=== PATIENT | female | born 1945 | race Caucasian/White ===

== ENCOUNTER 2020-12-19 22:26 | Inpatient (IN) | payer OTHER, SELFPAY ==
--- NOTE | ~2020-12-19 | XR_ITS ---
EXAMINATION: XR CHEST CLINICAL INFORMATION: Chest pain COMPARISON: None TECHNIQUE: 2 views of the chest were obtained. FINDINGS: The cardiac shadow is at the upper limits of normal for size. The cardiomediastinal silhouette is otherwise normal in contour. There is mild prominence of the grecia and pulmonary vascular congestion. There is increased interstitial prominence throughout and mild peribronchial cuffing suggestive of interstitial edema. No focal consolidative airspace opacities are identified. There is no pleural effusion or pneumothorax. There are degenerative changes of the chest wall. XR/XR chest 2V IMPRESSION: Increased interstitial opacities throughout and pulmonary vascular congestion suggestive of interstitial edema.
--- NOTE | ~2020-12-19 | CT_ITS ---
EXAMINATION: CT HEAD WITHOUT CONTRAST CLINICAL INFORMATION: severe SANDY COMPARISON: None TECHNIQUE: Contiguous axial imaging was performed from the skull base to vertex without intravenous administration of contrast. This CT examination was performed using dose optimization techniques as appropriate, variously including the following: *Automated exposure control *Adjustment of mA and/or kV according to patient size (this includes techniques or standardized protocols for targeted exams where dose is matched to indication/reason for exam; i.e. extremities or head) *Use of iterative reconstruction technique DLP: 576 mGy-cm FINDINGS: There is no evidence of acute intracranial hemorrhage or territorial infarction. No abnormal mass effect or midline shift is seen. Lowery to white matter differentiation is well preserved. No extra-axial fluid collections are identified. Mild enlargement of the ventricles, sulci, and extra-axial CSF spaces is in keeping with age-appropriate parenchymal volume loss. Multiple areas of hypoattenuation in the subcortical and periventricular white matter are most consistent with chronic microangiopathic changes. Focal region of hypoattenuation in the right internal capsule at the genu may correspond to a perivascular space. Chronic lacunar infarct is possible. Chronic lacunar infarcts are present in the left thalamus and left caudate. Probable small lacunar infarct in the left cerebral hemisphere superiorly. Calcific atherosclerosis is present within the cavernous and supraclinoid segments of the internal carotid arteries. Globes are aphakic. The osseous structures and soft tissues are otherwise normal. The mastoid air cells and visualized portions of the paranasal sinuses are well aerated. CT/CT head/brain wo con IMPRESSION: No acute intracranial pathology.. 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
[2020-12-19 22:42] VITALS: BP 189/102; BP 234/87; PULSE 83; PULSE 84; RESP 20; TEMP 36.6; O2SAT 96; O2SAT 97; BMI 25.4
--- NOTE | 2020-12-19 22:50 | PC.NURSE ---
PT TO ED VIA AMBULANCE WITH MID STERNAL CP, RATING PAIN 10/10. PT VOMITING AFTER CP STARTED AND PAIN RESOLVED UNTIL ARRIVAL TO ED. EKG OBTAINED TO MD. PT ON MONITOR WITH HR 85 AND MD AT BEDSIDE FOR EVAL.
[2020-12-19 23:05] VITALS: BP 218/84; PULSE 80
[2020-12-19] MEDS: Labetalol HCL 100 MG/20 ML VIAL 10 MG IVPUSH (23:05)
--- NOTE | 2020-12-19 23:06 | PC.NURSE ---
PT MEDICATED FOR HIGH BP.
--- NOTE | 2020-12-19 23:10 | ECG_ITS ---
Test Reason : CHEST TIGHTNESS Blood Pressure : / mmHG Vent. Rate : 086 BPM Atrial Rate : 086 BPM P-R Int : 148 ms QRS Dur : 136 ms QT Int : 444 ms P-R-T Axes : 045 -70 102 degrees QTc Int : 531 ms Normal sinus rhythm Right bundle branch block Left anterior fascicular block Bifascicular block ST elevation in Septal leads Abnormal ECG No previous ECGs available Referred By: Veronica Whyte Electronically Signed By:JAIRO ALVARADO MD
--- NOTE | 2020-12-19 23:14 | PC.NURSE ---
LABS DRAWN TO LAB. PT AWAITING FOR CT.
[2020-12-19 23:18] LABS: MANUAL DIFF FLAG NO
[2020-12-19 23:19] LABS: Basophils Absolute Auto 0.1 X10*3/uL (0.0-0.2); Basophils Percent Auto 0.7 % (0-2); Eosinophils Absolute Auto 0.2 X10*3/uL (0.0-0.4); Eosinophils Percent Auto 1.7 % (0-4); Hematocrit 37.3 % (37-47); Hemoglobin 12.2 g/dl (12.0-16.0); Imm Gran Abs Auto 0.02 X10*3/uL (0.00-0.03); Imm Gran Pct Auto 0.2 % (0.0-0.4); Lymphocytes Absolute Auto 2.1 X10*3/uL (1.2-4.9); Lymphocytes Percent Auto 23.9 % (20-40); Mean Corpuscular HGB Conc 32.7 g/dl (31.0-35.0); Mean Corpuscular Hemoglobin 28.5 pg (27.0-33.0); Mean Corpuscular Volume 87.1 fL (80-98); Mean Platelet Volume 10.5 fL (9.4-12.3); Monocytes Absolute Auto 0.5 X10*3/uL (0.1-1.2); Neutrophils Absolute Auto 5.9 X10*3/uL (2.0-8.3); Neutrophils Percent Auto 67.5 % (45-73); Platelet Count 221 X10*3/uL (160-400); Red Blood Count 4.28 X10*6/uL (4.20-5.50); Red Cell Distribution Width 13.9 % (11.0-16.0); White Blood Count 8.8 X10*3/uL (4.8-10.8)
--- NOTE | 2020-12-19 23:21 | PC.NURSE ---
PT TO CT.
[2020-12-19 23:53] VITALS: BP 183/66; PULSE 81; O2SAT 96
[2020-12-20] VITALS (13 sets, daily range): BP systolic 116–197; BP diastolic 41–74; PULSE 63–81; RESP 16–18; TEMP 35.7–35.9; O2SAT 96–98
[2020-12-20 00:01] LABS: Alanine Aminotransferase 9 U/L (0-31); Albumin Level 3.7 g/dL (3.5-5.0); Alkaline Phosphatase 94 U/L (39-117); Anion Gap 11 (12-20); Aspartate Amino Transferase 11 U/L (5-31); Bilirubin Direct 0.2 mg/dL (0.0-0.5); Bilirubin Total 0.8 mg/dL (0.0-1.0); Blood Urea Nitrogen 20 mg/dL (9-16); Calcium 8.9 mg/dL (8.4-10.2); Carbon Dioxide 25 mmol/L (22-29); Chloride 104 mmol/L (96-108); Creatinine Clr Calc Pharmacy 45.6; Estimated Glomerular Filt Rate 55; Glucose Random 370 mg/dL (60-115); Potassium 3.8 mmol/L (3.3-5.1); Sodium 136 mmol/L (135-145); Total Protein 6.8 g/dL (6.5-8.0)
[2020-12-20 00:02] LABS: B Type Natriuretic Peptide 140 pg/mL (<100); Troponin-I High Sensitivity 407.5 ng/L (<3.5-17.0)
--- NOTE | 2020-12-20 00:04 | ED_ITS ---
HPI - Chest Pain General Chief Complaint: Chest Pain Stated Complaint: CP RESOLVED,VOMTING Time Seen by Provider: 12/19/20 22:49 Source: patient and EMS Mode of arrival: EMS Limitations: no limitations History of Present Illness HPI narrative: Patient comes to emergency room complaining of severe headache, midsternal chest pain. Patient states that since earlier this afternoon, she noticed that she had headache and it was gradually getting worse. Patient had 1 episode of vomiting no to the headache. Patient states that she also had substernal chest tightness, no medication was given by EMS, by the time patient arrived to emergency room, patient states that the chest pain nearly resolved, however she has been experiencing intermittent chest tightness throughout the day. On arrival, it was noted that the patient's blood pressure is 230 systolic, patient states that she is visiting from [place], lives in [place], is here visiting a daughter. Patient forgot all her medications at home in [place], and has not had any insulin or blood pressure medications for 2-3 days. MD complaint: chest heaviness, chest discomfort and other (Headache, high blood pressure) Related Data Allergies Allergy/AdvReac Type Severity Reaction Status Date / Time Opioids - Morphine Analogues AdvReac Intermediate AMS Verified 12/19/20 22:58 Review of Systems Review of Systems: Constitutional : No Weight loss, No Fever, No Chills, No Night Sweats, No Fatigue, No Malaise ENT/Mouth : No Hearing loss, No Ear Pain, No Nasal Congestion, No Sinus Pain, No Hoarseness, No sore throat, No Rhinorrhea, No Swallowing Difficulty Eyes: No Eye Pain, No Swelling, No Redness, No Foreign Body, No Discharge, No Vision Changes Cardiovascular : Chest heaviness intermittent,, No SOB, No Dyspnea on Exertion, No Orthopnea, No Edema, No Palpitations Respiratory : No Cough, No Sputum, No Wheezing, No Smoke Exposure, No Dyspnea Gastrointestinal : No Nausea, No Vomiting, No Diarrhea, No Constipation, No abdominal Pain, No Hematochezia, No Melena Genitourinary : no irregular bleeding, No Dysuria, No Urinary Frequency, No Hematuria, No Urinary Incontinence, No Urgency, No Flank Pain, No Urinary Flow Changes, No Hesitancy Musculoskeletal : No joint pain, No Myalgias, No Joint Swelling Skin : No Skin Lesions, No rash Neuro : No Weakness, No Numbness, No Paresthesias, No Loss of Consciousness, No Dizziness, complaining of severe headache Psych : No Anxiety/Panic, No Depression, No SI/HI/AH/VH, No Social Issues, Heme/Lymph: No Bruising, No Bleeding,No Lymphadenopathy Endocrine : No Polyuria, No Polydipsia, No Temperature Intolerance PMF Past Medical History Medical History Asthma Diabetes mellitus type 1 Hypercholesteremia Hypertension Surgical History History of amputation Social History Social History Advance Directives: No Physical Exam Vital Signs: Vital Signs: Last Vital Signs Temp 98 F 12/19/20 22:42 Pulse 73 12/20/20 02:11 Resp 16 12/20/20 02:11 BP 160/65 H 12/20/20 02:11 Pulse Ox 96 12/20/20 02:11 Body Mass Index 25.4 Appearance: Alert. Oriented X3. Mild distress, complaining of severe headache Eyes: Pupils equal, round and reactive to light. ENT: Pharynx normal. Neck: Normal inspection. Neck supple. No lymph nodes noted. No crepitus CVS: Normal heart rate and rhythm. Pulses normal. Normal S1 and S2 Respiratory: No respiratory distress. Breath sounds normal. No Wheezing. No rales Abdomen: Soft and nontender. No rigidity. No distention. Skin: Skin warm and dry. Normal skin color. Extremities: No lower extremity edema. No Lacerations. No Rash Neuro: Oriented X 3. No motor deficit. No sensory deficit. Moving all extermities. No slurred speech. Course Course Course Narrative: After the 1st dose of IV labetalol, blood pressure decreased to 180s systolic, patient states that her headache nearly resolved, at this time she has no chest pain, no chest pressure. Patient overall feeling better. Patient's 1st troponin is 407, likely secondary to the hypertension/demand ischemia. The EKG showed ST segment depressions in the V4 V5 V6. We do not have any previous labs or EKGs, as this is the 1st time that the patient comes to this emergency room. I discussed the patient, labs and EKGs with Dr. Gibbons, patient is being admitted. However, troponin 2. Is pending. If the 2nd troponin is higher than the 1st 1, cardiology consult will be obtained. I spoke to Dr. Shin, who took sign-out. If needed, he will obtain the cardiology consult. MDM - Chest Pain Lab Data Result diagrams: 12/19/20 23:09 12/19/20 23:09 Labs: Lab Results 12/19/20 12/19/20 12/19/20 Range/Units 23:09 23:09 23:09 WBC 8.8 (4.8-10.8) X10*3/uL RBC 4.28 (4.20-5.50) X10*6/uL Hgb 12.2 (12.0-16.0) g/dl Hct 37.3 (37-47) % MCV 87.1 (80-98) fL MCH 28.5 (27.0-33.0) pg MCHC 32.7 (31.0-35.0) g/dl RDW 13.9 (11.0-16.0) % Plt Count 221 (160-400) X10*3/uL MPV 10.5 (9.4-12.3) fL Immature Gran % (Auto) 0.2 (0.0-0.4) % Neut % (Auto) 67.5 (45-73) % Lymph % (Auto) 23.9 (20-40) % [place] % (Auto) 6.0 (2-11) % Eos % (Auto) 1.7 (0-4) % Baso % (Auto) 0.7 (0-2) % Lymph # (Auto) 2.1 (1.2-4.9) X10*3/uL [place] # (Auto) 0.5 (0.1-1.2) X10*3/uL Eos # (Auto) 0.2 (0.0-0.4) X10*3/uL Baso # (Auto) 0.1 (0.0-0.2) X10*3/uL Abs Immat Gran (auto) 0.02 (0.00-0.03) X10*3/uL Absolute Neuts (auto) 5.9 (2.0-8.3) X10*3/uL Absolute Nucleated RBC 0.000 (0.0-0.012) X10*3/uL Nucleated RBC % (auto) 0.0 (0.0-0.2) /100WBC Sodium 136 (135-145) mmol/L Potassium 3.8 (3.3-5.1) mmol/L Chloride 104 (96-108) mmol/L Carbon Dioxide 25 (22-29) mmol/L Anion Gap 11 L (12-20) BUN 20 H (9-16) mg/dL Creatinine 0.98 (0.5-1.4) mg/dL Estim Creat Clear Calc 45.6 Estimated GFR 55 POC Glucose (60-115) mg/dL Random Glucose 370 H* (60-115) mg/dL Calcium 8.9 (8.4-10.2) mg/dL Total Bilirubin 0.8 (0.0-1.0) mg/dL Direct Bilirubin 0.2 (0.0-0.5) mg/dL AST 11 (5-31) U/L ALT 9 (0-31) U/L Alkaline Phosphatase 94 (39-117) U/L Troponin I High Sens 407.5 H (<3.5-17.0) ng/L B-Natriuretic Peptide 140 H (<100) pg/mL Total Protein 6.8 (6.5-8.0) g/dL Albumin 3.7 (3.5-5.0) g/dL COVID-19 ([facility]) (Negative) COVID-19 Clin Com 12/20/20 12/20/20 Range/Units 02:04 02:42 WBC (4.8-10.8) X10*3/uL RBC (4.20-5.50) X10*6/uL Hgb (12.0-16.0) g/dl Hct (37-47) % MCV (80-98) fL MCH (27.0-33.0) pg MCHC (31.0-35.0) g/dl RDW (11.0-16.0) % Plt Count (160-400) X10*3/uL MPV (9.4-12.3) fL Immature Gran % (Auto) (0.0-0.4) % Neut % (Auto) (45-73) % Lymph % (Auto) (20-40) % [place] % (Auto) (2-11) % Eos % (Auto) (0-4) % Baso % (Auto) (0-2) % Lymph # (Auto) (1.2-4.9) X10*3/uL [place] # (Auto) (0.1-1.2) X10*3/uL Eos # (Auto) (0.0-0.4) X10*3/uL Baso # (Auto) (0.0-0.2) X10*3/uL Abs Immat Gran (auto) (0.00-0.03) X10*3/uL Absolute Neuts (auto) (2.0-8.3) X10*3/uL Absolute Nucleated RBC (0.0-0.012) X10*3/uL Nucleated RBC % (auto) (0.0-0.2) /100WBC Sodium (135-145) mmol/L Potassium (3.3-5.1) mmol/L Chloride (96-108) mmol/L Carbon Dioxide (22-29) mmol/L Anion Gap (12-20) BUN (9-16) mg/dL Creatinine (0.5-1.4) mg/dL Estim Creat Clear Calc Estimated GFR POC Glucose 296 H (60-115) mg/dL Random Glucose (60-115) mg/dL Calcium (8.4-10.2) mg/dL Total Bilirubin (0.0-1.0) mg/dL Direct Bilirubin (0.0-0.5) mg/dL AST (5-31) U/L ALT (0-31) U/L Alkaline Phosphatase (39-117) U/L Troponin I High Sens (<3.5-17.0) ng/L B-Natriuretic Peptide (<100) pg/mL Total Protein (6.5-8.0) g/dL Albumin (3.5-5.0) g/dL COVID-19 ([facility]) Negative (Negative) COVID-19 Clin Com See Note ECG Data ECG #1: Attestation: I personally reviewed and interpreted this ECG as follows: (Sinus rhythm, heart rate 86, right bundle-branch block, T-wave inversions in V1 V2 V3, ST segment depressions in V4 through V6) ECG #2: Attestation: I personally reviewed and interpreted this ECG as follows: (Heart rate 83, normal sinus rhythm, QTC 514, no longer having ST segment depressions in V4 through V6, no T-wave inversions in V2) ECG #3: Attestation: I personally reviewed and interpreted this ECG as follows: (Heart rate 76, sinus rhythm, QTC 546, no EKG changes from EKG #2) Critical Care Time Critical Care Time Total Critical Care Time: 90 Discharge Plan Discharge Clinical Impression: Hypertensive emergency without congestive heart failure, Chest pressure, Hyperglycemia Headache Qualifiers: Headache type: unspecified Headache chronicity pattern: acute headache Intractability: not intractable Qualified Code(s): R51.9 - Headache, unspecified Patient Disposition: Admitted As Inpatient
[2020-12-20] MEDS: Labetalol HCL 100 MG/20 ML VIAL IVPUSH (00:08)
--- NOTE | 2020-12-20 00:08 | PC.NURSE ---
PT MEDICATED PER EMAR FOR HIGH B/P.
[2020-12-20] MEDS: Acetaminophen 325 MG TABLET 650 MG PO (00:09)
--- NOTE | 2020-12-20 00:57 | ECG_ITS ---
Test Reason : REPEAT Blood Pressure : / mmHG Vent. Rate : 076 BPM Atrial Rate : 076 BPM P-R Int : 150 ms QRS Dur : 126 ms QT Int : 486 ms P-R-T Axes : 048 -59 085 degrees QTc Int : 546 ms Normal sinus rhythm Left axis deviation Left ventricular hypertrophy with QRS widening and repolarization abnormality Cannot rule out Anteroseptal infarct , age undetermined Abnormal ECG When compared with ECG of 19-DEC-2020 22:46, (RBBB and left anterior fascicular block) is no longer Present Minimal criteria for Anteroseptal infarct are now Present Referred By: Veronica Whyte Electronically Signed By:JAIRO ALVARADO MD
--- NOTE | 2020-12-20 01:30 | PC.NURSE ---
REPEAT EKG OBTAINED TO . REPEAT TROP AT 0200. PT RESTING, WAKES TO VERBAL STIMULI, RESP EASY, N/L. SKIN W/D. PT REMAINS ON MONITOR WITH HR 79. B/P 197\74. AWAITING FOR REPEAT TROP.
[2020-12-20] MEDS: Labetalol HCL 100 MG/20 ML VIAL 10 MG IVPUSH (01:33)
[2020-12-20] MEDS: Insulin Regular, Human 100 UNIT/ML 3 ML VIAL 10 UNIT IVPUSH (01:38)
--- NOTE | 2020-12-20 01:58 | PC.NURSE ---
3RD EKG OBTAINED TO MD. PT RESTING IN STRETCHER AND DENIES ANY COMPLAINTS/PAIN AT THIS TIME. WILL CONTINUE TO MONITOR PT. TROPONIN DRAWN AT THIS TIME TO LAB.
[2020-12-20 02:29] LABS: COVID-19 Test Negative (Negative); IDNOW Serial# 9DD0AD1C
--- NOTE | 2020-12-20 02:43 | PC.NURSE ---
REPEAT BS 296 MD AWARE.
[2020-12-20 02:46] LABS: Glucose, Whole Blood 296 mg/dL (60-115)
--- NOTE | 2020-12-20 02:51 | PC.NURSE ---
HOSPITALIST IN ROOM FOR EVAL.
[2020-12-20 03:02] LABS: Troponin-I High Sensitivity 481.6 ng/L (<3.5-17.0)
--- NOTE | 2020-12-20 03:26 | PM.IMHP ---
History of Present Illness Date of Service: 12/20/20 Chief Complaint: chest pain 74-year-old female with a past medical history of hypertension, hyperlipidemia, diabetes, CAD status post CABG presented to the hospital with a chief complaint of chest pain/headaches. Patient reports that she is visiting from [facility] and has been if her son's place for 2 days and has not taken her medications since. Today when she was watching TV she suddenly had chest pain located in the center of the chest tight in nature associated nausea and vomiting and dizziness; also had headache at the same time and denies any blurry visions or focal weakness. Denies any numbness tingling. Chest pain lasted for few minutes and subsequently continued to have the headache hence decided to come to the hospital for further evaluation. Denies fever chills cough. Denies any urinary symptoms. Review of all other systems is negative except mentioned above Patient reported the time of my entry her chest pain significantly improved and headache also significantly improved. A ER course: Per ER team patient CT head showed no acute findings. Patient was given labetalol x2; blood pressure improved from 230/87 on presentation to 160/65. Patient's blood pressure at the time of my interview was 145 over 65. ER team also mentioned that her troponin is 400 followed by 480. EKG showed ST depressions in V4 V5 V6 and lead V1 and T-wave inversions in V2 to V3. Of follow-up EKGs have similar findings. Once the blood pressure improved her EKG changes slightly improved. [facility] Medical History Asthma Diabetes mellitus type 1 Hypercholesteremia Hypertension Surgical History History of amputation Social History Household Members: Children Housing: House Smoking Status: Never smoker service: No Current occupational status: unemployed Meds Allergies Allergy/AdvReac Type Severity Reaction Status Date / Time Opioids - Morphine Analogues AdvReac Intermediate AMS Verified 12/19/20 22:58 Active Medications: Current Medications Generic Name Dose Route Start Last Admin Trade Name Freq PRN Reason Stop Dose Admin Acetaminophen 650 mg 12/20/20 03:18 Acetaminophen 325 Mg Tablet PO Q6H PRN Pain, Mild (Pain Scale 1-3) Aspirin 81 mg 12/20/20 03:25 Aspirin 81 Mg Tab.Chew PO DAILY [facility] Enoxaparin Sodium 65 mg 12/20/20 03:30 Enoxaparin Sodium 120 Mg/0.8 Ml Syringe 1 mg/kg (65 mg) SUBCUT Q12H [facility] Insulin Glargine 10 unit 12/20/20 21:00 Insulin Glargine,Hum.Rec.Anlog 100 Unit/Ml 10 Ml Vial SUBCUT BEDTIME [facility] Insulin Human Lispro 0 unit 12/20/20 07:30 Insulin Lispro 100 Unit/Ml 3 Ml Vial SUBCUT QIDACHS [facility] Protocol Nitroglycerin 0.4 mg 12/20/20 03:18 Nitroglycerin 0.4 Mg Tab.Subl SUBLINGUAL Q5M PRN Chest Pain Pharmacy Consult 1 each 12/20/20 01:45 Consult Rx Perform Med Rec MISCELLANE ONCE PRN Consult order Sodium Chloride 3 ml 12/20/20 08:00 0.9 % Sodium Chloride Flush 3 Ml Syringe IVFLUSH QSHIFT [facility] Home Medications Medication Instructions Recorded Confirmed Last Taken Type clopidogrel 75 mg PO DAILY 12/20/20 12/20/20 Unknown History ferrous sulfate 325 mg PO DAILY 12/20/20 12/20/20 Unknown History glipizide 10 mg PO DAILY 12/20/20 12/20/20 Unknown History hydrochlorothiazide 12.5 mg PO DAILY 12/20/20 12/20/20 Unknown History metoprolol succinate 200 mg PO DAILY 12/20/20 12/20/20 Unknown History sitagliptin [Januvia] 100 mg PO DAILY 12/20/20 12/20/20 Unknown History Physical Exam Vital Signs and Narrative: Vital Signs: Last Vital Signs Temp 98 F 12/19/20 22:42 Pulse 73 12/20/20 02:11 Resp 16 12/20/20 02:11 BP 160/65 H 12/20/20 02:11 Pulse Ox 96 12/20/20 02:11 Body Mass Index 25.4 Gen: Appears be in no acute distress HEENT: NCAT, Moist mucosa. Pulmonary: Vesicular breath sounds, fair air entry CVS: Normal S1-S2 Abdomen: BS+, Soft, Nontender Extremities: Warm well perfused Neuro: Alert and awake. Grossly nonfocal Results Labs CBC and Chem 7: 12/20/20 06:52 12/20/20 06:52 Labs: Laboratory Results - last 24 hr 12/19/20 12/19/20 12/19/20 23:09 23:09 23:09 MCV 87.1 MCH 28.5 MCHC 32.7 RDW 13.9 Plt Count 221 MPV 10.5 Immature Gran % (Auto) 0.2 Neut % (Auto) 67.5 Lymph % (Auto) 23.9 [place] % (Auto) 6.0 Eos % (Auto) 1.7 Baso % (Auto) 0.7 Lymph # (Auto) 2.1 [place] # (Auto) 0.5 Eos # (Auto) 0.2 Baso # (Auto) 0.1 Abs Immat Gran (auto) 0.02 Absolute Neuts (auto) 5.9 Absolute Nucleated RBC 0.000 Nucleated RBC % (auto) 0.0 Anion Gap 11 L Estim Creat Clear Calc 45.6 Estimated GFR 55 POC Glucose Random Glucose 370 H* Calcium 8.9 Total Bilirubin 0.8 Direct Bilirubin 0.2 AST 11 ALT 9 Alkaline Phosphatase 94 Troponin I High Sens 407.5 H B-Natriuretic Peptide 140 H Total Protein 6.8 Albumin 3.7 COVID-19 ([facility]) COVID-[employer] 12/20/20 12/20/20 12/20/20 02:04 02:04 02:42 MCV MCH MCHC RDW Plt Count MPV Immature Gran % (Auto) Neut % (Auto) Lymph % (Auto) [place] % (Auto) Eos % (Auto) Baso % (Auto) Lymph # (Auto) [place] # (Auto) Eos # (Auto) Baso # (Auto) Abs Immat Gran (auto) Absolute Neuts (auto) Absolute Nucleated RBC Nucleated RBC % (auto) Anion Gap Estim Creat Clear Calc Estimated GFR POC Glucose 296 H Random Glucose Calcium Total Bilirubin Direct Bilirubin AST ALT Alkaline Phosphatase Troponin I High Sens 481.6 H B-Natriuretic Peptide Total Protein Albumin COVID-19 ([facility]) Negative COVID-19 Clin Com See Note Imaging Radiologist's Impressions: Impressions Head CT 12/19/20 22:59 IMPRESSION: No acute intracranial pathology.. 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 Assessment and Plan (1) Chest pressure: Status: Resolved 74-year-old female with a past medical history of hypertension, hyperlipidemia, diabetes, CAD status post CABG presented to the hospital with a chief complaint of chest pain/headaches. Noted to be in hypertensive emergency, which improved with labetalol. Admitted for further management. Hypertensive emergency: Patient's blood pressure on presentation was 230/87. CT head showed no acute findings. Exam was nonfocal. Patient was given labetalol in the ER with improvement in blood pressure at the time of my interview to 145/65. Will start the patient on metoprolol from tomorrow. Monitor vitals. NSTEMI: Patient noted to have subtle ST changes in the lateral leads on the EKG. Troponin elevated to 400 is followed by 480. Spoke to Dr. carrion; recommended to anticoagulated the patient. Will start the patient on Lovenox. Started aspirin. Will also give Lipitor. Patient on beta-ashley as mentioned. Telemetry Cycle cardiac enzymes Echocardiogram shows Diabetes: Insulin sliding scale. Will also start the patient on Lantus. Patient does not recall her home medications, will defer to the a.m. team to touch base with the patient's primary care physician in ER for medication confirmation. Code status: Full code
[2020-12-20] MEDS: Aspirin 81 MG TAB.CHEW PO ×2 (03:54→07:51)
[2020-12-20] MEDS: Enoxaparin Sodium 120 MG/0.8 ML SYRINGE 65 MG SUBCUT (04:06)
--- NOTE | 2020-12-20 05:47 | PC.NURSE ---
REPORT GIVEN TO RN. PT AWAITING TO GO TO FLOOR.
[2020-12-20 07:10] LABS: Glucose, Whole Blood 280 mg/dL (60-115)
[2020-12-20 07:18] LABS: MANUAL DIFF FLAG NO
[2020-12-20 07:20] LABS: Basophils Absolute Auto 0.1 X10*3/uL (0.0-0.2); Basophils Percent Auto 0.7 % (0-2); Eosinophils Absolute Auto 0.2 X10*3/uL (0.0-0.4); Eosinophils Percent Auto 1.7 % (0-4); Hemoglobin 11.2 g/dl (12.0-16.0); Imm Gran Abs Auto 0.04 X10*3/uL (0.00-0.03); Imm Gran Pct Auto 0.4 % (0.0-0.4); Lymphocytes Absolute Auto 2.9 X10*3/uL (1.2-4.9); Lymphocytes Percent Auto 30.7 % (20-40); Mean Corpuscular Volume 87.5 fL (80-98); Mean Platelet Volume 10.8 fL (9.4-12.3); Monocytes Absolute Auto 0.6 X10*3/uL (0.1-1.2); Monocytes Percent Auto 5.8 % (2-11); Neutrophils Absolute Auto 5.8 X10*3/uL (2.0-8.3); Neutrophils Percent Auto 60.7 % (45-73); Platelet Count 215 X10*3/uL (160-400); Red Cell Distribution Width 14.1 % (11.0-16.0); White Blood Count 9.5 X10*3/uL (4.8-10.8)
[2020-12-20 07:22] LABS: Hematocrit 34.6 % (37-47); Hemoglobin 11.3 g/dl (12.0-16.0); Mean Corpuscular HGB Conc 32.7 g/dl (31.0-35.0); Mean Corpuscular Hemoglobin 28.3 pg (27.0-33.0); Mean Corpuscular Volume 86.7 fL (80-98); Mean Platelet Volume 11.2 fL (9.4-12.3); Platelet Count 218 X10*3/uL (160-400); Red Blood Count 3.99 X10*6/uL (4.20-5.50); Red Cell Distribution Width 13.9 % (11.0-16.0); White Blood Count 9.5 X10*3/uL (4.8-10.8)
[2020-12-20 07:38] LABS: INTERNATIONAL NORM RATIO 1.1 (0.9-1.1); Prothrombin Time 13.1 SEC (10.8-13.0)
[2020-12-20 07:41] LABS: Partial Thromboplastin Time 45.5 SEC (24.1-38.0)
[2020-12-20] MEDS: Insulin Lispro 100 UNIT/ML 3 ML VIAL SUBCUT (07:50)
[2020-12-20] MEDS: Metoprolol Tartrate 25 MG TABLET PO (07:51)
[2020-12-20 07:56] LABS: Anion Gap 12 (12-20); Blood Urea Nitrogen 22 mg/dL (9-16); Calcium 8.7 mg/dL (8.4-10.2); Carbon Dioxide 23 mmol/L (22-29); Chloride 107 mmol/L (96-108); Creatinine Clr Calc Pharmacy 46.6; Estimated Glomerular Filt Rate 57; Glucose Random 316 mg/dL (60-115); Potassium 3.7 mmol/L (3.3-5.1); Sodium 138 mmol/L (135-145)
--- NOTE | 2020-12-20 08:30 | CA_ITS ---
Transthoracic Echocardiogram Patient (Last, First, Middle): Payton Souza, Gender: Female Date of : 1945 Age: 74 Procedure Date: 12/20/2020 Procedure Type: Transthoracic Echocardiogram Location: S3E Height: 160.02 cm Weight: 64.86 kg BSA: 1.68 m2 Heart Rate: bpm BP: 147 / 48 mmHg Director Data Management: DAREN Cobb MD: Abiel Gibbons MD Spray Gunner: Sujit Carrion MD Symptoms: chest pain Study Quality: Good ECG Rhythm: Sinus Conclusions: - 1. Czoo-hw-fomzhnpf LV systolic dysfunction with grade 1 diastolic dysfunction with wall motion abnormality suggestive underlying coronary artery disease 2. Cardiac valvular Doppler within normal limits 3. Normal RV systolic pressure 4. No pericardial effusion Findings Left Ventricle Normal left ventricular cavity size. There is normal left ventricular wall thickness. The left ventricular systolic function is mild to moderately decreased. The visually estimated ejection fraction is between 40-45%. Spectral Doppler is indicative of an impaired relaxation filling pattern. E/E prime ratio is <8, consistent with normal filling pressures. Evidence suggests grade I (mild) diastolic dysfunction. Wall Motion Rest Echo Findings The basal inferior, basal anterior, and mid anteroseptal segments are hypokinetic. The inferoseptal wall is akinetic. All other scored wall segments showed normal motion. Right Ventricle Normal right ventricular cavity size and systolic function. Atria The left atrium is likely dilated. There is lipomatous hypertrophy of the interatrial septum. Interatrial shunt cannot be excluded. The right atrium is normal in size. Aortic Valve The aortic valve was not well visualized. There is no aortic valve stenosis. There is no aortic valve regurgitation. Mitral Valve Normal mitral valve structure and function. There is trace mitral valve regurgitation. There is no mitral valve stenosis. Pulmonic Valve The pulmonic valve was not well visualized. Tricuspid Valve Likely normal tricuspid valve structure and function. There is mild tricuspid valve regurgitation. The right ventricular systolic pressure is normal. The right ventricular systolic pressure is 27 mmHg. Normal right atrial pressure. There is no evidence of pulmonary hypertension. Great Vessels All visible segments of the aorta are normal in size. The pulmonary artery was not well visualized. Venous The inferior vena cava is normal in size and collapses greater than 50% with inspiration. Pericardium/Pleural There is no evidence of pericardial effusion. Prior Study Comparison No prior study available for comparison. Measurements 2D Linear Measurements IVSd: 1.15 0.6-0.9/0.6-1.0 cm LVIDd: 4.40 3.9-5.3/4.2-5.9 cm LVIDd Index: 2.62 2.4-3.2/2.2-3.1 cm/m2 LVIDs: 3.47 2.0-3.6 cm LVPWd: 1.11 0.7-1.1 cm Ao Root: 3.10 2.1-3.5 cm LA Diam: 3.70 2.7-3.8/3.0-4.0 cm LAIDs Index: 2.20 1.5-2.3 cm/m2 LV Mass: 218.63 67-162/88-224 g LV Mass Index: 130.14 43-95/49-115 g/m2 LVOT Diam: 2.00 3.0+(-)1.3 cm Mitral Valve MV Pk E: 0.62 MV PK A: 0.97 MV Decel Time: 208.00 E/A: 0.60 E'Lateral: 3.70 E'Medial: 4.46 E/E' Med: 13.90 E/E' Lat: 16.70 PHT: 61.00 MVA PHT: 3.61 Decel [place]: 2.98 Aortic Valve AoV Pk Leo: 1.40 AoV Mn Leo: 0.96 AoV VTI: 0.33 AoV Pk Grad: 8.00 Aov Mn Grad: 4.00 GUILLERMO Cont.VTI: 1.78 LVOT LVOT Pk Leo: 0.88 LVOT Mn Leo: 0.52 LVOT VTI: 0.19 LVOT Pk Grad: 3.00 LVOT Mn Grad: 1.00 LVOT Diam: 2.00 LVOT Area: 3.14 Diastolic Function MV Pk E: 0.62 MV Pk A: 0.97 E/A: 0.60 E'Medial: 4.46 E/E' Med: 13.90 E' Laterial: 3.70 E/E' Lat: 16.70 Tricuspid Valve TR Pk Leo: 2.47 TR Pk Grad: 24.00 RA Press: 3.00 RVSP: 27.00 Great Vessels Aorta Ao Root-2D: 3.10 2.0-3.7 cm Ao Asc: 3.20 2.1-3.4 cm Ao Arch: 2.70 Updated in Other Vendor System with Status of Final Sujit Carrion MD electronically signed on 12/20/2020 4:43:29 PM with status of Final
--- NOTE | 2020-12-20 09:34 | MHC.CM.PN ---
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 REIS IN [place], PT USED [facility] AND HAS NOT USED A LOCAL PHARMACY SINCE COMING TO [place]. DISCHARGE PLAN: RETURN TO SONS HOME, JAYSON LEA TO TRANSPORT [phone]
--- NOTE | 2020-12-20 09:35 | PM.DS ---
DS: Providers Provider Date of Service: 12/20/20 Date of admission: 12/20/20 03:18 Primary care physician: Unknown Physician Consults: 12/20/20 03:18 Consult to Cardiology Routine Consulting Provider: Sujit Carrion Reason for consultation: chest pain DS: Diagnosis Discharge Diagnosis (1) Acute coronary syndrome: Status: Acute (2) Hypertensive emergency without congestive heart failure: Status: Acute DS: Medications Discharge Medications Home Medications: Previous Rx's Medication Instructions Recorded acetaminophen 650 mg PO Q6H PRN #1 tab 12/20/20 aspirin 81 mg PO DAILY #1 tab 12/20/20 atorvastatin 40 mg PO BEDTIME #1 tab 12/20/20 enoxaparin 65 mg SUBCUT Q12H #1 ml 12/20/20 insulin glargine [Lantus U-100 10 unit SUBCUT BEDTIME #1 ml 12/20/20 Insulin] insulin lispro [Humalog U-100 See Protocol SUBCUT QIDACHS #1 ml 12/20/20 Insulin] metoprolol tartrate 25 mg PO BID #1 tab 12/20/20 nitroglycerin [Nitrostat] 0.4 mg SUBLINGUAL Q5M PRN #1 tab 12/20/20 sodium chloride 0.9 % (flush) [BD 3 ml IVFLUSH QSHIFT #1 ml 12/20/20 PosiFlush Normal Saline 0.9] DS: Summary Hospital Course Hospital Course: From this morning's history and physical by admitting hospitalist Abiel Gibbons MD: 74-year-old female with a past medical history of hypertension, hyperlipidemia, diabetes, CAD status post CABG presented to the hospital with a chief complaint of chest pain/headaches. Patient reports that she is visiting from [facility] and has been if her son's place for 2 days and has not taken her medications since. Today when she was watching TV she suddenly had chest pain located in the center of the chest tight in nature associated nausea and vomiting and dizziness; also had headache at the same time and denies any blurry visions or focal weakness. Denies any numbness tingling. Chest pain lasted for few minutes and subsequently continued to have the headache hence decided to come to the hospital for further evaluation. Denies fever chills cough. Denies any urinary symptoms. Review of all other systems is negative except mentioned above Patient reported the time of my entry her chest pain significantly improved and headache also significantly improved. ER course: Per ER team patient CT head showed no acute findings. Patient was given labetalol x2; blood pressure improved from 230/87 on presentation to 160/65. Patient's blood pressure at the time of my interview was 145 over 65. ER team also mentioned that her troponin is 400 followed by 480. EKG showed ST depressions in V4 V5 V6 and lead V1 and T-wave inversions in V2 to V3. Of follow-up EKGs have similar findings. Once the blood pressure improved her EKG changes slightly improved. The patient was admitted to telemetry. Chest pain resolved. EKGs were reviewed and actually showed septal ST elevations. Cardiology was consulted. Echocardiography demonstrated septal wall motion abnormalities. She was transferred to [facility] for cardiac catheterization. Time Spent with Patient Time attestation: Total time spent providing and/or coordinating discharge services: 35 Discharge coordination time: Greater than 30 minutes Physical Exam Vital Signs: Vital Signs: Last Vital Signs Temp 96.2 F L 12/20/20 08:00 Pulse 75 12/20/20 08:00 Resp 16 12/20/20 08:00 BP 156/60 H 12/20/20 08:00 Pulse Ox 98 12/20/20 08:00 Body Mass Index 25.4 Gen: in no acute distress, Green[place]ic-speaking HEENT: sclera anicteric, moist mucus membranes Neck: supple Lungs: clear to auscultation bilaterally Heart: regular rate and rhythm, no murmurs Abd: soft, non-tender, non-distended Ext: no edema, s/p right AKA Skin: warm/well-perfused Neuro: alert and oriented x3, no focal findings Psych: appropriate affect DS: Data Data Completed and Pending Labs on day of discharge: Laboratory Results - last 24 hr 12/19/20 12/19/20 12/19/20 23:09 23:09 23:09 WBC 8.8 RBC 4.28 Hgb 12.2 Hct 37.3 MCV 87.1 MCH 28.5 MCHC 32.7 RDW 13.9 Plt Count 221 MPV 10.5 Immature Gran % (Auto) 0.2 Neut % (Auto) 67.5 Lymph % (Auto) 23.9 [place] % (Auto) 6.0 Eos % (Auto) 1.7 Baso % (Auto) 0.7 Lymph # (Auto) 2.1 [place] # (Auto) 0.5 Eos # (Auto) 0.2 Baso # (Auto) 0.1 Abs Immat Gran (auto) 0.02 Absolute Neuts (auto) 5.9 Absolute Nucleated RBC 0.000 Nucleated RBC % (auto) 0.0 PT INR APTT Sodium 136 Potassium 3.8 Chloride 104 Carbon Dioxide 25 Anion Gap 11 L BUN 20 H Creatinine 0.98 Estim Creat Clear Calc 45.6 Estimated GFR 55 POC Glucose Random Glucose 370 H* Calcium 8.9 Total Bilirubin 0.8 Direct Bilirubin 0.2 AST 11 ALT 9 Alkaline Phosphatase 94 Troponin I High Sens 407.5 H B-Natriuretic Peptide 140 H Total Protein 6.8 Albumin 3.7 COVID-19 (RONALD) COVIDYinYangMap 12/20/20 12/20/20 12/20/20 02:04 02:04 02:42 WBC RBC Hgb Hct MCV MCH MCHC RDW Plt Count MPV Immature Gran % (Auto) Neut % (Auto) Lymph % (Auto) [place] % (Auto) Eos % (Auto) Baso % (Auto) Lymph # (Auto) [place] # (Auto) Eos # (Auto) Baso # (Auto) Abs Immat Gran (auto) Absolute Neuts (auto) Absolute Nucleated RBC Nucleated RBC % (auto) PT INR APTT Sodium Potassium Chloride Carbon Dioxide Anion Gap BUN Creatinine Estim Creat Clear Calc Estimated GFR POC Glucose 296 H Random Glucose Calcium Total Bilirubin Direct Bilirubin AST ALT Alkaline Phosphatase Troponin I High Sens 481.6 H B-Natriuretic Peptide Total Protein Albumin COVID-19 (RONALD) Negative COVID-19 Roombeats See Note 12/20/20 12/20/20 12/20/20 06:52 06:52 06:52 WBC 9.5 9.5 RBC 3.99 L 4.00 L Hgb 11.3 L 11.2 L Hct 34.6 L 35.0 L MCV 86.7 87.5 MCH 28.3 28.0 MCHC 32.7 32.0 RDW 13.9 14.1 Plt Count 218 215 MPV 11.2 10.8 Immature Gran % (Auto) 0.4 Neut % (Auto) 60.7 Lymph % (Auto) 30.7 [place] % (Auto) 5.8 Eos % (Auto) 1.7 Baso % (Auto) 0.7 Lymph # (Auto) 2.9 [place] # (Auto) 0.6 Eos # (Auto) 0.2 Baso # (Auto) 0.1 Abs Immat Gran (auto) 0.04 H Absolute Neuts (auto) 5.8 Absolute Nucleated RBC 0.000 0.000 Nucleated RBC % (auto) 0.0 0.0 PT 13.1 H INR 1.1 APTT 45.5 H Sodium Potassium Chloride Carbon Dioxide Anion Gap BUN Creatinine Estim Creat Clear Calc Estimated GFR POC Glucose Random Glucose Calcium Total Bilirubin Direct Bilirubin AST ALT Alkaline Phosphatase Troponin I High Sens B-Natriuretic Peptide Total Protein Albumin COVID-19 (RONALD) COVID-19 Asteres Com 12/20/20 12/20/20 06:52 07:06 WBC RBC Hgb Hct MCV MCH MCHC RDW Plt Count MPV Immature Gran % (Auto) Neut % (Auto) Lymph % (Auto) [place] % (Auto) Eos % (Auto) Baso % (Auto) Lymph # (Auto) [place] # (Auto) Eos # (Auto) Baso # (Auto) Abs Immat Gran (auto) Absolute Neuts (auto) Absolute Nucleated RBC Nucleated RBC % (auto) PT INR APTT Sodium 138 Potassium 3.7 Chloride 107 Carbon Dioxide 23 Anion Gap 12 BUN 22 H Creatinine 0.96 Estim Creat Clear Calc 46.6 Estimated GFR 57 POC Glucose 280 H Random Glucose 316 H Calcium 8.7 Total Bilirubin Direct Bilirubin AST ALT Alkaline Phosphatase Troponin I High Sens B-Natriuretic Peptide Total Protein Albumin COVID-19 (RONALD) COVID-19 Clin Com Impressions Head CT 12/19/20 22:59 IMPRESSION: No acute intracranial pathology.. 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 Discharge Plan Discharge Anticipated Discharge Date/Time: 12/20/20 09:31 Patient Disposition: Xfer Acute Care Hospital Discharge Medications: New atorvastatin 40 mg Tablet 40 mg PO BEDTIME Qty: 1 RF: 0 acetaminophen 325 mg Tablet 650 mg PO Q6H PRN (Reason: Pain, Mild (Pain Scale 1-3)) Qty: 1 RF: 0 Lantus U-100 Insulin 100 unit/mL Solution 10 unit subcut BEDTIME Qty: 1 RF: 0 nitroglycerin [Nitrostat] 0.4 mg Tablet, Sublingual 0.4 mg sublingual Q5M PRN (Reason: Chest Pain) Qty: 1 RF: 0 aspirin 81 mg Tablet,Chewable 81 mg PO DAILY Qty: 1 RF: 0 insulin lispro [Humalog U-100 Insulin] 100 unit/mL Solution See Protocol unit subcut QIDACHS Qty: 1 RF: 0 sodium chloride 0.9 % (flush) [BD PosiFlush Normal Saline 0.9] Syringe 3 ml IVFLUSH QSHIFT Qty: 1 RF: 0 enoxaparin 120 mg/0.8 mL Syringe 65 mg subcut Q12H Qty: 1 RF: 0 metoprolol tartrate 25 mg Tablet 25 mg PO BID Qty: 1 RF: 0 Discharge Orders: Discharge Order (Routine); Ordered 12/20/20 Ordered By: Neema Zhou Diet: diabetic diet and low fat, low cholesterol Activity on Discharge: Rest with bed elevated Stand Alone Forms: Patient Portal Discharge page Care Plan Goals: healthy heart Health Concerns: myocardial infarction Plan of Treatment: transfer to [facility] for invasive management Patient Instructions: Heart Attack (DC), Heart Catheterization (DC)
--- NOTE | 2020-12-20 09:51 | MHC.CM.PN ---
Addendum entered by Rhea Turner RN 12/20/20 10:44: CLARIFICATION, PER HOSPITALIST PT TRANSFERRED TO [facility] DUE TO NSTEMI. Original Note: PT DISCHARGED TO SON LEONORA'S HOME, [facility] FOR TRANSPORTATION.
[2020-12-20 09:56] LABS: Estimated Average Glucose 255 mg/dL; Hemoglobin A1c % 10.5 %
--- NOTE | 2020-12-20 09:56 | P.CONCA_ITS ---
History of Present Illness History of Present Illness Date of Service: 12/20/20 Consult reason: myocardial infarction and other Chief complaint: Chest Pain Narrative: We were asked to see Iris in cardiology consultation today for acute coronary syndrome. Patient has prior history of coronary artery disease, history obtained with help of compressor station operator, patient had MRI she says in [place] about 1 and half years ago and had a stent placed, unknown artery. She is v isiting her daughter for the last couple of days and forgot her medicines. She came to the hospital with crushing chest pain similar to a prior myocardial infarction but worse with choking sensation. Initial EKG shows ST elevation in septal leads, this was not picked up. Subsequent EKG shows QS pattern in septal leads with persistent ST elevation in anteroseptal leads. Initial troponin was in the 400 range rising up to in the 480 range with no 50% delta. Symptoms resolved with medications. She is currently chest pain free. Repeat troponin from this morning is pending. Echocardiogram bedside showed septal wall motion abnormality, this is preliminary report. Full report to follow. Patient got a dose of Lovenox at 03:30 in the morning Review of Systems Constitutional: Constitutional: Reports no additional constitutional complaints Cardiovascular: Cardiovascular: Reports chest pain at rest, Denies lightheadedness, Denies Loss of Consciousness, Denies palpitations and Reports dyspnea Respiratory: Respiratory: Reports no additional respiratory complaints and Reports dyspnea Gastrointestinal: Gastrointestinal: Reports no additional gastrointestinal complaints Genitourinary: Genitourinary: Reports no additional female genitourinary complaints Musculoskeletal: Musculoskeletal: Reports no additional musculoskeletal complaints Neurologic: Reports system reviewed and no additional complaints, except as documented Psychiatric: Psychiatric: Reports no additional psychiatric complaints Endocrine: Endocrine: Reports no additional endocrine complaints and Denies palpitations Hematologic/Lymphatic: Hematologic/Lymphatic: Reports no additional hematologic/lymphatic complaints [facility] Past Medical History Medical History Asthma Diabetes mellitus type 1 Hypercholesteremia Hypertension Surgical History Surgical History History of amputation Social History Social History Household Members: Children Housing: House Do you presently have visiting nurse or other home services: Yes Smoking Status: Never smoker Use of substances other than those prescribed or required for medical reasons: No Currently Displaying Signs/Symptoms of Drug Intoxication Withdrawal: No Have you been hit, kicked, punched, or otherwise hurt by someone within the past year? If so, by whom?: No Do you feel safe in your current relationship?: Yes Is there a partner from a previous relationship who is making you feel unsafe now?: No Are you made to feel afraid or neglected: No Advance Directives: No Do you have thoughts of harming others: None Do you have a plan to hurt others: No Plan Recently lost weight without trying: Yes service: No Current occupational status: unemployed Meds Allergies Allergy/AdvReac Type Severity Reaction Status Date / Time Opioids - Morphine Analogues AdvReac Intermediate AMS Verified 12/19/20 22:58 Active Medications: Current Medications Generic Name Dose Route Start Last Admin Trade Name Freq PRN Reason Stop Dose Admin Acetaminophen 650 mg 12/20/20 03:18 Acetaminophen 325 Mg Tablet PO Q6H PRN Pain, Mild (Pain Scale 1-3) Aspirin 81 mg 12/20/20 03:25 12/20/20 07:51 Aspirin 81 Mg Tab.Chew PO 81 mg DAILY SUKHWINDER Administration Atorvastatin Calcium 40 mg 12/20/20 21:00 Atorvastatin Calcium 40 Mg Tablet PO BEDTIME SUKHWINDER Enoxaparin Sodium 65 mg 12/20/20 03:30 12/20/20 04:06 Enoxaparin Sodium 120 Mg/0.8 Ml Syringe 1 mg/kg (65 mg) 65 mg SUBCUT Administration Q12H [facility] Insulin Glargine 10 unit 12/20/20 21:00 Insulin Glargine,Hum.Rec.Anlog 100 Unit/Ml 10 Ml Vial SUBCUT BEDTIME [facility] Insulin Human Lispro 0 unit 12/20/20 07:30 12/20/20 07:50 Insulin Lispro 100 Unit/Ml 3 Ml Vial SUBCUT 6 unit QIDACHS [facility] Administration Protocol Metoprolol Tartrate 25 mg 12/20/20 09:00 12/20/20 07:51 Metoprolol Tartrate 25 Mg Tablet PO 25 mg BID SUKHWINDER Administration Protocol Nitroglycerin 0.4 mg 12/20/20 03:18 Nitroglycerin 0.4 Mg Tab.Subl SUBLINGUAL Q5M PRN Chest Pain Pharmacy Consult 1 each 12/20/20 01:45 Consult Rx Perform Med Rec MISCELLANE ONCE PRN Consult order Sodium Chloride 3 ml 12/20/20 08:00 0.9 % Sodium Chloride Flush 3 Ml Syringe IVFLUSH QSHIFT SUKHWINDER Physical Exam Vital Signs: Vital Signs: Last Vital Signs Temp 96.2 F L 12/20/20 08:00 Pulse 75 12/20/20 08:00 Resp 16 12/20/20 08:00 BP 156/60 H 12/20/20 08:00 Pulse Ox 98 12/20/20 08:00 Body Mass Index 25.4 Const: General: cooperative, comfortable, no acute distress, alert and awake Nutritional Appearance: average body habitus Orientation/consciousness: patient oriented x3 HENMT: Head: Yes normocephalic and Yes atraumatic Neck: Neck: Yes trachea midline, Yes supple and Yes no JVD Chest: Chest palpation & inspection: normal inspection of the chest Resp: Effort & Inspection: normal respiratory effort Auscultation: clear to auscultation bilaterally Cardio: Jugular venous distension: no JVD Palpation: normal PMI Rate: regular rate Rhythm: regular rhythm Heart sounds: S1 normal heart sound present, S2 normal heart sound present and Other heart sounds present (S4) GI: Auscultation: normal bowel sounds Skin: General skin exam: no rashes or lesions noted Neuro: General: patient oriented x3 and no focal motor deficits Extrem: General: Yes no clubbing, cyanosis or edema and Yes amputation noted Psych: Appearance: grossly normal Results Labs and Meds Result diagrams: 12/20/20 06:52 12/20/20 06:52 Lab results: Laboratory Results - last 24 hr 12/19/20 12/19/20 12/19/20 23:09 23:09 23:09 WBC 8.8 RBC 4.28 Hgb 12.2 Hct 37.3 MCV 87.1 MCH 28.5 MCHC 32.7 RDW 13.9 Plt Count 221 MPV 10.5 Immature Gran % (Auto) 0.2 Neut % (Auto) 67.5 Lymph % (Auto) 23.9 [place] % (Auto) 6.0 Eos % (Auto) 1.7 Baso % (Auto) 0.7 Lymph # (Auto) 2.1 [place] # (Auto) 0.5 Eos # (Auto) 0.2 Baso # (Auto) 0.1 Abs Immat Gran (auto) 0.02 Absolute Neuts (auto) 5.9 Absolute Nucleated RBC 0.000 Nucleated RBC % (auto) 0.0 PT INR APTT Sodium 136 Potassium 3.8 Chloride 104 Carbon Dioxide 25 Anion Gap 11 L BUN 20 H Creatinine 0.98 Estim Creat Clear Calc 45.6 Estimated GFR 55 POC Glucose Random Glucose 370 H* Calcium 8.9 Total Bilirubin 0.8 Direct Bilirubin 0.2 AST 11 ALT 9 Alkaline Phosphatase 94 Troponin I High Sens 407.5 H B-Natriuretic Peptide 140 H Total Protein 6.8 Albumin 3.7 COVID-19 (RONALD) COVID-19 Clin Com 12/20/20 12/20/20 12/20/20 02:04 02:04 02:42 WBC RBC Hgb Hct MCV MCH MCHC RDW Plt Count MPV Immature Gran % (Auto) Neut % (Auto) Lymph % (Auto) [place] % (Auto) Eos % (Auto) Baso % (Auto) Lymph # (Auto) [place] # (Auto) Eos # (Auto) Baso # (Auto) Abs Immat Gran (auto) Absolute Neuts (auto) Absolute Nucleated RBC Nucleated RBC % (auto) PT INR APTT Sodium Potassium Chloride Carbon Dioxide Anion Gap BUN Creatinine Estim Creat Clear Calc Estimated GFR POC Glucose 296 H Random Glucose Calcium Total Bilirubin Direct Bilirubin AST ALT Alkaline Phosphatase Troponin I High Sens 481.6 H B-Natriuretic Peptide Total Protein Albumin COVID-19 (RONALD) Negative COVID-19 Clin Com See Note 12/20/20 12/20/20 12/20/20 06:52 06:52 06:52 WBC 9.5 9.5 RBC 3.99 L 4.00 L Hgb 11.3 L 11.2 L Hct 34.6 L 35.0 L MCV 86.7 87.5 MCH 28.3 28.0 MCHC 32.7 32.0 RDW 13.9 14.1 Plt Count 218 215 MPV 11.2 10.8 Immature Gran % (Auto) 0.4 Neut % (Auto) 60.7 Lymph % (Auto) 30.7 [place] % (Auto) 5.8 Eos % (Auto) 1.7 Baso % (Auto) 0.7 Lymph # (Auto) 2.9 [place] # (Auto) 0.6 Eos # (Auto) 0.2 Baso # (Auto) 0.1 Abs Immat Gran (auto) 0.04 H Absolute Neuts (auto) 5.8 Absolute Nucleated RBC 0.000 0.000 Nucleated RBC % (auto) 0.0 0.0 PT 13.1 H INR 1.1 APTT 45.5 H Sodium Potassium Chloride Carbon Dioxide Anion Gap BUN Creatinine Estim Creat Clear Calc Estimated GFR POC Glucose Random Glucose Calcium Total Bilirubin Direct Bilirubin AST ALT Alkaline Phosphatase Troponin I High Sens B-Natriuretic Peptide Total Protein Albumin COVID-19 (RONALD) COVID-19 Clin Com 12/20/20 12/20/20 06:52 07:06 WBC RBC Hgb Hct MCV MCH MCHC RDW Plt Count MPV Immature Gran % (Auto) Neut % (Auto) Lymph % (Auto) [place] % (Auto) Eos % (Auto) Baso % (Auto) Lymph # (Auto) [place] # (Auto) Eos # (Auto) Baso # (Auto) Abs Immat Gran (auto) Absolute Neuts (auto) Absolute Nucleated RBC Nucleated RBC % (auto) PT INR APTT Sodium 138 Potassium 3.7 Chloride 107 Carbon Dioxide 23 Anion Gap 12 BUN 22 H Creatinine 0.96 Estim Creat Clear Calc 46.6 Estimated GFR 57 POC Glucose 280 H Random Glucose 316 H Calcium 8.7 Total Bilirubin Direct Bilirubin AST ALT Alkaline Phosphatase Troponin I High Sens B-Natriuretic Peptide Total Protein Albumin COVID-19 (RONALD) COVID-19 Clin Com EKG shows normal sinus rhythm with ST elevation in our right bundle-branch block with V1 and V2, repeat EKG shows normal sinus rhythm with QS pattern in lead with septal leads with ST elevation in V1 V2 Imaging Radiologist's impression: Impressions Head CT 12/19/20 22:59 IMPRESSION: No acute intracranial pathology.. 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 Assessment and Plan (1) Acute coronary syndrome: Status: Acute High-risk acute coronary syndrome with ST-elevation, missed on initial EKG. Patient is currently chest pain free. Being transferred urgently to [facility] and will require cardiac catheterization soon. She did get a dose of Lovenox at 03:30 in the morning. Continue aspirin continue high-intensity statin therapy. Continue metoprolol therapy. Findings were discussed with patient, including risks, benefits, alternatives 2nd opinion to the procedure. She is agreeable. Arrangements have been made to be transferred to [facility]. Case also discussed with rounding plating operator Dr. Helms at [facility].
[2020-12-20 10:01] LABS: Troponin-I High Sensitivity 1725.9 ng/L (<3.5-17.0)
== END 2020-12-20 11:00 | disposition short-term general hospital (02) | DRG 311 ==
LOC: HO.ED 12-20 02:32 → HO.EDOVER 12-20 04:11 → HO.S3 12-20 05:01
PROVIDERS: Admitting Provider Hospitalist; Emergency Provider Emergency Medicine; Visit Provider Family Medicine
DX: I24.9 Acute ischemic heart disease, unspecified (principal); I16.1 Hypertensive emergency; Z20.822 Contact with and (suspected) exposure to COVID-19; I10 Essential (primary) hypertension; I25.10 Atherosclerotic heart disease of native coronary artery without angina pectoris; Z95.1 Presence of aortocoronary bypass graft; Z79.4 Long term (current) use of insulin; Z79.02 Long term (current) use of antithrombotics/antiplatelets; Z79.82 Long term (current) use of aspirin; Z79.899 Other long term (current) drug therapy
CPT/HCPCS: 36415; 70450; 71046; 80048; 80076; 82947; 83036; 83880; 84484; 85025; 85027; 85610; 85730; 87635; 93005; 93306; 96374; 96375; 96376; 99285; 99291; 99292; J1650

== ENCOUNTER 2021-03-09 13:53 | Emergency (ER) | payer OTHER, SELFPAY ==
--- NOTE | ~2021-03-09 | US_ITS ---
EXAMINATION: ULTRASOUND ARTERIAL DUPLEX LOWER EXTREMITY, LEFT CLINICAL INFORMATION: 75-year-old female with left lower extremity pain. Pulses are undopplerable. COMPARISON: None TECHNIQUE: Grayscale, color and spectral Doppler imaging was obtained of the deep arterial system of the left lower extremity. Suspected left axillofemoral bypass graft also imaged. FINDINGS: Visualized portions of suspected left axillofemoral bypass graft from the left chest into the left groin are completely occluded. The right common femoral artery is completely occluded. Visualized portions of the proximal and mid superficial femoral artery are occluded. There appears to be a stent within the soft tissues of the left thigh which is completely occluded. The stent in the region of the posterior left knee is also occluded. There does appear to be minimal flow within the distal aspect of the redding superficial femoral artery and minimal flow within the profundus femoris artery. No flow appreciated within the left posterior tibial artery. US/US arterial duplex LE LT IMPRESSION: Suspected left axillofemoral stent graft is completely thrombosed. There is also complete thrombosis of the left lower extremity stent graft. Minimal flow only noted within the redding distal left superficial femoral artery. This Critical Result was discussed with ELBERT Aguirre at 4:27 PM on March 09, 2021 and it was ascertained that the content and urgency of the report was understood at the time of direct communication.
--- NOTE | 2021-03-09 14:32 | ECG_ITS ---
Test Reason : WEAKNESS Blood Pressure : / mmHG Vent. Rate : 069 BPM Atrial Rate : 069 BPM P-R Int : 146 ms QRS Dur : 108 ms QT Int : 434 ms P-R-T Axes : 048 -59 -28 degrees QTc Int : 465 ms Normal sinus rhythm Left axis deviation Incomplete right bundle branch block Voltage criteria for left ventricular hypertrophy Cannot rule out Septal infarct (cited on or before 20-DEC-2020) Abnormal ECG When compared with ECG of 20-DEC-2020 01:59, Incomplete right bundle branch block is now Present Questionable change in initial forces of Anterior leads Referred By: Hawa Murphy Electronically Signed By:Jovany Garcia
[2021-03-09 14:36] LABS: Glucose, Whole Blood 356 mg/dL (60-115)
[2021-03-09 14:38] VITALS: BP 142/59; PULSE 68; RESP 14; O2SAT 93; BMI 23.6
--- NOTE | 2021-03-09 14:38 | ED.LOWEXIN ---
HPI - Extremity Injury (Lower) General Chief Complaint: Extremity Injury, Lower Stated Complaint: LEG PAIN Time Seen by Provider: 03/09/21 14:14 Source: patient and EMS Mode of arrival: EMS History of Present Illness HPI Narrative: 75-year-old female with a past medical history of asthma CAD s/p multiple stents, HTN, HLD, DM, PVD s/p right AKA, on ASA and Plavix, presenting to the ED complaining of left leg pain, tingling/numbness x2 days. Admits had stent placed in left leg 4 months ago at [facility]. Denies fever, chills, CP/SOB, headache, fall/head trauma, drug use Patient is poor historian Related Data Home Medications Medication Instructions Recorded Confirmed clopidogrel 75 mg PO DAILY 12/20/20 12/20/20 ferrous sulfate 325 mg PO DAILY 12/20/20 12/20/20 glipizide 10 mg PO DAILY 12/20/20 12/20/20 hydrochlorothiazide 12.5 mg PO DAILY 12/20/20 12/20/20 metoprolol succinate 200 mg PO DAILY 12/20/20 12/20/20 sitagliptin [Januvia] 100 mg PO DAILY 12/20/20 12/20/20 Previous Rx's Medication Instructions Recorded acetaminophen 650 mg PO Q6H PRN #1 tab 12/20/20 aspirin 81 mg PO DAILY #1 tab 12/20/20 atorvastatin 40 mg PO BEDTIME #1 tab 12/20/20 enoxaparin 65 mg SUBCUT Q12H #1 ml 12/20/20 insulin glargine [Lantus U-100 10 unit SUBCUT BEDTIME #1 ml 12/20/20 Insulin] insulin lispro [Humalog U-100 See Protocol SUBCUT QIDACHS #1 ml 12/20/20 Insulin] metoprolol tartrate 25 mg PO BID #1 tab 12/20/20 nitroglycerin [Nitrostat] 0.4 mg SUBLINGUAL Q5M PRN #1 tab 12/20/20 sodium chloride 0.9 % (flush) [BD 3 ml IVFLUSH QSHIFT #1 ml 12/20/20 PosiFlush Normal Saline 0.9] Allergies Allergy/AdvReac Type Severity Reaction Status Date / Time Opioids - Morphine Analogues AdvReac Intermediate AMS Verified 12/19/20 22:58 Review of Systems Review of Systems: Constitutional: No Fever, No Chills, No Fatigue, No Malaise Cardiovascular: No Chest Pain, No SOB, No Edema Respiratory: No Cough, No Dyspnea Gastrointestinal: No Nausea, No Vomiting, No Diarrhea, No Constipation, No Abdominal pain Musculoskeletal: + joint pain, No Myalgias, No Joint Swelling Skin: No Skin Lesions, No rash Neuro: No Weakness, + Numbness, + Paresthesias, No Headache Heme/Lymph: No Bruising, No Bleeding,No Lymphadenopathy Yes all other systems are reviewed and are negative COUNTS INCLUDE 234 BEDS AT THE [facility] Past Medical History Medical History Asthma Diabetes mellitus type 1 Hypercholesteremia Hypertension Surgical History History of amputation Social History Social History Household Members: Children Housing: House Do you presently have visiting nurse or other home services: Yes Advance Directives: No Advance Directives Information Provided: No service: No Current occupational status: unemployed Physical Exam Vital Signs: Vital Signs: Last Vital Signs Pulse 63 03/09/21 16:43 Resp 20 03/09/21 16:43 BP 143/54 H 03/09/21 16:43 Pulse Ox 93 03/09/21 16:43 Body Mass Index 23.6 Const: Other: Lethargic but easily arousable General: cooperative and lethargic Orientation/consciousness: patient oriented x3 and lethargic Limitations: no limitations HENMT: Head: Yes normal to inspection Ears: hearing grossly normal bilaterally General nose exam: Normal external nose present Face and sinus: Yes normal facial exam Eyes: General: appearance normal, both eyes and all related structures EOM: EOMs intact bilaterally Neck: Neck: Yes normal visual inspection and Yes no meningeal signs Resp: Effort & Inspection: normal respiratory effort Auscultation: clear to auscultation bilaterally Cardio: Rate: regular rate Heart sounds: S1 normal heart sound present and S2 normal heart sound present GI: Inspection: Yes normal to inspection Palpation (GI): Soft to palpation, nontender, no guarding and not rigid Skin: Rashes: no rashes Wounds: no wounds Neuro: General: patient oriented x3 and no meningeal signs Extrem: Other: Right AKA Left lower extremity dusky with pale toes. Pulses not palpable or dopplerable Course Course Course Narrative: Case discussed with Dr. Park who recommended arterial Doppler 1st - mild leukocytosis of 13.7, VIC with BUN 25/ Creatinine 1.44, glucose 413, no anion gap, acetone negative >> IVF and 5 units subcu insulin ordered -1630--US arterial duplex LE LT IMPRESSION: Suspected left axillofemoral stent graft is completely thrombosed. There is also complete thrombosis of the left lower extremity stent graft. Minimal flow only noted within the [place] distal left superficial femoral artery. >> Dr. Park re-paged -1650--Vascular, Dr. Park recommended heparin bolus and drip and transfer to [facility] -spoke to vascular surgeon Dr. Barber at [facility], patient will be transferred ED to ED MDM - Extremity Injury (Lower) MDM Narrative Medical decision making narrative: 75-year-old female with a past medical history of asthma CAD s/p multiple stents, HTN, HLD, DM, PVD s/p right AKA, on ASA, heparin, and Plavix, presenting to the ED complaining of left leg pain, tingling/numbness x2 days. On exam vital signs stable, lethargic/drowsy during exam, left lower extremity dusky with pale toes, pulses not palpable or dopplerable. Concern for vascular emergency/total arterial occlusion. Low concern for DVT Consulted vascular immediately, Dr. Park recommended obtaining arterial Doppler Plan: EKG, labs, Arterial Doppler, reassess Lab Data Result diagrams: 03/09/21 15:05 03/09/21 15:05 Labs: Lab Results 03/09/21 03/09/21 03/09/21 Range/Units 14:31 15:05 15:05 WBC 13.7 H (4.8-10.8) X10*3/uL RBC 4.77 (4.20-5.50) X10*6/uL Hgb 13.9 D (12.0-16.0) g/dl Hct 41.7 (37-47) % MCV 87.4 (80-98) fL MCH 29.1 (27.0-33.0) pg MCHC 33.3 (31.0-35.0) g/dl RDW 14.3 (11.0-16.0) % Plt Count 277 D (160-400) X10*3/uL MPV 11.4 (9.4-12.3) fL Immature Gran % (Auto) 0.4 (0.0-0.4) % Neut % (Auto) 81.0 H (45-73) % Lymph % (Auto) 12.2 L (20-40) % [place] % (Auto) 5.1 (2-11) % Eos % (Auto) 0.9 (0-4) % Baso % (Auto) 0.4 (0-2) % Lymph # (Auto) 1.7 (1.2-4.9) X10*3/uL [place] # (Auto) 0.7 (0.1-1.2) X10*3/uL Eos # (Auto) 0.1 (0.0-0.4) X10*3/uL Baso # (Auto) 0.1 (0.0-0.2) X10*3/uL Abs Immat Gran (auto) 0.05 H (0.00-0.03) X10*3/uL Absolute Neuts (auto) 11.1 H (2.0-8.3) X10*3/uL Absolute Nucleated RBC 0.000 (0.0-0.012) X10*3/uL Nucleated RBC % (auto) 0.0 (0.0-0.2) /100WBC PT 12.6 (10.8-13.0) SEC INR 1.1 (0.9-1.1) APTT 38.3 H (24.1-38.0) SEC Sodium (135-145) mmol/L Potassium (3.3-5.1) mmol/L Chloride (96-108) mmol/L Carbon Dioxide (22-29) mmol/L Anion Gap (12-20) BUN (9-16) mg/dL Creatinine (0.5-1.4) mg/dL Estim Creat Clear Calc Estimated GFR POC Glucose 356 H* (60-115) mg/dL Random Glucose (60-115) mg/dL Calcium (8.4-10.2) mg/dL Magnesium (1.6-2.6) mg/dL Total Bilirubin (0.0-1.0) mg/dL Direct Bilirubin (0.0-0.5) mg/dL AST (5-31) U/L ALT (0-31) U/L Alkaline Phosphatase (39-117) U/L Total Protein (6.5-8.0) g/dL Albumin (3.5-5.0) g/dL Acetone, Qual (Negative) COVID-19 ([facility]) (Negative) COVID-19 Clin Com 03/09/21 03/09/21 03/09/21 Range/Units 15:05 15:05 15:05 WBC (4.8-10.8) X10*3/uL RBC (4.20-5.50) X10*6/uL Hgb (12.0-16.0) g/dl Hct (37-47) % MCV (80-98) fL MCH (27.0-33.0) pg MCHC (31.0-35.0) g/dl RDW (11.0-16.0) % Plt Count (160-400) X10*3/uL MPV (9.4-12.3) fL Immature Gran % (Auto) (0.0-0.4) % Neut % (Auto) (45-73) % Lymph % (Auto) (20-40) % [place] % (Auto) (2-11) % Eos % (Auto) (0-4) % Baso % (Auto) (0-2) % Lymph # (Auto) (1.2-4.9) X10*3/uL [place] # (Auto) (0.1-1.2) X10*3/uL Eos # (Auto) (0.0-0.4) X10*3/uL Baso # (Auto) (0.0-0.2) X10*3/uL Abs Immat Gran (auto) (0.00-0.03) X10*3/uL Absolute Neuts (auto) (2.0-8.3) X10*3/uL Absolute Nucleated RBC (0.0-0.012) X10*3/uL Nucleated RBC % (auto) (0.0-0.2) /100WBC PT (10.8-13.0) SEC INR (0.9-1.1) APTT (24.1-38.0) SEC Sodium 138 (135-145) mmol/L Potassium 3.9 (3.3-5.1) mmol/L Chloride 101 (96-108) mmol/L Carbon Dioxide 23 (22-29) mmol/L Anion Gap 18 (12-20) BUN 25 H (9-16) mg/dL Creatinine 1.44 H (0.5-1.4) mg/dL Estim Creat Clear Calc 25.4 Estimated GFR 35 POC Glucose (60-115) mg/dL Random Glucose 413 H* (60-115) mg/dL Calcium 9.8 D (8.4-10.2) mg/dL Magnesium 1.9 (1.6-2.6) mg/dL Total Bilirubin 0.8 (0.0-1.0) mg/dL Direct Bilirubin 0.2 (0.0-0.5) mg/dL AST 9 (5-31) U/L ALT 7 (0-31) U/L Alkaline Phosphatase 120 H D (39-117) U/L Total Protein 7.4 (6.5-8.0) g/dL Albumin 4.2 (3.5-5.0) g/dL Acetone, Qual (Negative) COVID-19 ([facility]) Negative (Negative) COVID-19 Clin Com See Note 03/09/21 Range/Units 15:05 WBC (4.8-10.8) X10*3/uL RBC (4.20-5.50) X10*6/uL Hgb (12.0-16.0) g/dl Hct (37-47) % MCV (80-98) fL MCH (27.0-33.0) pg MCHC (31.0-35.0) g/dl RDW (11.0-16.0) % Plt Count (160-400) X10*3/uL MPV (9.4-12.3) fL Immature Gran % (Auto) (0.0-0.4) % Neut % (Auto) (45-73) % Lymph % (Auto) (20-40) % [place] % (Auto) (2-11) % Eos % (Auto) (0-4) % Baso % (Auto) (0-2) % Lymph # (Auto) (1.2-4.9) X10*3/uL [place] # (Auto) (0.1-1.2) X10*3/uL Eos # (Auto) (0.0-0.4) X10*3/uL Baso # (Auto) (0.0-0.2) X10*3/uL Abs Immat Gran (auto) (0.00-0.03) X10*3/uL Absolute Neuts (auto) (2.0-8.3) X10*3/uL Absolute Nucleated RBC (0.0-0.012) X10*3/uL Nucleated RBC % (auto) (0.0-0.2) /100WBC PT (10.8-13.0) SEC INR (0.9-1.1) APTT (24.1-38.0) SEC Sodium (135-145) mmol/L Potassium (3.3-5.1) mmol/L Chloride (96-108) mmol/L Carbon Dioxide (22-29) mmol/L Anion Gap (12-20) BUN (9-16) mg/dL Creatinine (0.5-1.4) mg/dL Estim Creat Clear Calc Estimated GFR POC Glucose (60-115) mg/dL Random Glucose (60-115) mg/dL Calcium (8.4-10.2) mg/dL Magnesium (1.6-2.6) mg/dL Total Bilirubin (0.0-1.0) mg/dL Direct Bilirubin (0.0-0.5) mg/dL AST (5-31) U/L ALT (0-31) U/L Alkaline Phosphatase (39-117) U/L Total Protein (6.5-8.0) g/dL Albumin (3.5-5.0) g/dL Acetone, Qual Negative (Negative) COVID-19 ([facility]) (Negative) COVID-19 Clin Com Discharge Plan Discharge Clinical Impression: Thrombosis of artery in lower extremity Patient Disposition: Xfer [facility] Hospital Prescriptions: No Action atorvastatin 40 mg Tablet 40 mg PO BEDTIME Qty: 1 RF: 0 acetaminophen 325 mg Tablet 650 mg PO Q6H PRN (Reason: Pain, Mild (Pain Scale 1-3)) Qty: 1 RF: 0 Lantus U-100 Insulin 100 unit/mL Solution 10 unit subcut BEDTIME Qty: 1 RF: 0 nitroglycerin [Nitrostat] 0.4 mg Tablet, Sublingual 0.4 mg sublingual Q5M PRN (Reason: Chest Pain) Qty: 1 RF: 0 aspirin 81 mg Tablet,Chewable 81 mg PO DAILY Qty: 1 RF: 0 insulin lispro [Humalog U-100 Insulin] 100 unit/mL Solution See Protocol unit subcut QIDACHS Qty: 1 RF: 0 sodium chloride 0.9 % (flush) [BD PosiFlush Normal Saline 0.9] Syringe 3 ml IVFLUSH QSHIFT Qty: 1 RF: 0 enoxaparin 120 mg/0.8 mL Syringe 65 mg subcut Q12H Qty: 1 RF: 0 metoprolol tartrate 25 mg Tablet 25 mg PO BID Qty: 1 RF: 0 glipizide 10 mg Tablet Extended Release 24hr 10 mg PO DAILY RF: 0 metoprolol succinate 200 mg Tablet Extended Release 24 Hr 200 mg PO DAILY RF: 0 clopidogrel 75 mg Tablet 75 mg PO DAILY RF: 0 ferrous sulfate 325 mg (65 mg iron) Tablet 325 mg PO DAILY RF: 0 hydrochlorothiazide 12.5 mg Capsule 12.5 mg PO DAILY RF: 0 Januvia 100 mg Tablet 100 mg PO DAILY RF: 0 Print Language: [place]
[2021-03-09 15:15] LABS: MANUAL DIFF FLAG NO
[2021-03-09 15:19] LABS: Basophils Absolute Auto 0.1 X10*3/uL (0.0-0.2); Basophils Percent Auto 0.4 % (0-2); Eosinophils Absolute Auto 0.1 X10*3/uL (0.0-0.4); Eosinophils Percent Auto 0.9 % (0-4); Hematocrit 41.7 % (37-47); Hemoglobin 13.9 g/dl (12.0-16.0); Imm Gran Abs Auto 0.05 X10*3/uL (0.00-0.03); Imm Gran Pct Auto 0.4 % (0.0-0.4); Lymphocytes Absolute Auto 1.7 X10*3/uL (1.2-4.9); Lymphocytes Percent Auto 12.2 % (20-40); Mean Corpuscular HGB Conc 33.3 g/dl (31.0-35.0); Mean Corpuscular Hemoglobin 29.1 pg (27.0-33.0); Mean Corpuscular Volume 87.4 fL (80-98); Mean Platelet Volume 11.4 fL (9.4-12.3); Monocytes Absolute Auto 0.7 X10*3/uL (0.1-1.2); Monocytes Percent Auto 5.1 % (2-11); Neutrophils Absolute Auto 11.1 X10*3/uL (2.0-8.3); Platelet Count 277 X10*3/uL (160-400); Red Blood Count 4.77 X10*6/uL (4.20-5.50); Red Cell Distribution Width 14.3 % (11.0-16.0); White Blood Count 13.7 X10*3/uL (4.8-10.8)
[2021-03-09 15:27] LABS: INTERNATIONAL NORM RATIO 1.1 (0.9-1.1); Prothrombin Time 12.6 SEC (10.8-13.0)
[2021-03-09 15:34] LABS: COVID-19 Test Negative (Negative)
[2021-03-09 15:41] LABS: Acetone, serum QL Negative (Negative)
[2021-03-09 15:49] LABS: Alanine Aminotransferase 7 U/L (0-31); Albumin Level 4.2 g/dL (3.5-5.0); Alkaline Phosphatase 120 U/L (39-117); Aspartate Amino Transferase 9 U/L (5-31); Bilirubin Direct 0.2 mg/dL (0.0-0.5); Bilirubin Total 0.8 mg/dL (0.0-1.0); Partial Thromboplastin Time 38.3 SEC (24.1-38.0); Total Protein 7.4 g/dL (6.5-8.0)
[2021-03-09 15:54] LABS: Anion Gap 18 (12-20); Blood Urea Nitrogen 25 mg/dL (9-16); Calcium 9.8 mg/dL (8.4-10.2); Carbon Dioxide 23 mmol/L (22-29); Chloride 101 mmol/L (96-108); Creatinine Clr Calc Pharmacy 25.4; Estimated Glomerular Filt Rate 35; Glucose Random 413 mg/dL (60-115); Magnesium 1.9 mg/dL (1.6-2.6); Potassium 3.9 mmol/L (3.3-5.1); Sodium 138 mmol/L (135-145)
[2021-03-09] MEDS: Insulin Regular, Human 100 UNIT/ML 3 ML VIAL SUBCUT (16:36)
[2021-03-09] MEDS: 0.9 % Sodium Chloride 1,000 ML 999 ML IVCONT (16:38)
--- NOTE | 2021-03-09 16:40 | PC.NURSE ---
Pt given insulin and IVF. She was moved to a monitored bed and placed on the bedside monitor. She remains extremely somnolent but is arrousable to tactile stimuli.
[2021-03-09 16:43] VITALS: BP 143/54; PULSE 63; RESP 20; O2SAT 93
[2021-03-09] MEDS: Heparin Sodium,Porcine/1/2NS 25,000 UNIT/250 ML IV.SOLN 7.94 UNIT IVCONT (17:14)
[2021-03-09] MEDS: Heparin Sodium,Porcine 5,000 UNIT/ML VIAL 4500 UNIT IVPUSH (17:16)
[2021-03-09 17:18] LABS: Amphetamine Screen Urine Not Detected (Not Detect); Barbiturates, Urine Not Detected (Not Detect); Benzodiazepines Screen Urine POSITIVE (Not Detect); Cannabinoid Screen Urine Not Detected (Not Detect); Cocaine Screen Urine Not Detected (Not Detect); Opiate Screen Urine Not Detected (Not Detect); Phencyclidine Screen Urine Not Detected (Not Detect)
--- NOTE | 2021-03-09 17:18 | PC.NURSE ---
Heparin bolus given and heparin drip started. Pt aware of plan to transfer to [facility]. Ambulance booked.
--- NOTE | 2021-03-09 17:21 | PC.NURSE ---
On arrival to ED. Unable to palpate pedal or posterior tibial pulse and unable to fin pulses with Doppler.
--- NOTE | 2021-03-09 17:32 | PC.NURSE ---
Nurse to nurse give to [facility] [place]
[2021-03-09 17:50] LABS: Glucose, Whole Blood 384 mg/dL (60-115)
== END 2021-03-09 18:20 | disposition short-term general hospital (02) ==
PROVIDERS: Physician Assistant; Emergency Provider Emergency Medicine Emergency Medical Services
DX: I74.3 Embolism and thrombosis of arteries of the lower extremities (principal); M79.662 Pain in left lower leg; R60.0 Localized edema; I25.10 Atherosclerotic heart disease of native coronary artery without angina pectoris; I10 Essential (primary) hypertension; Z79.82 Long term (current) use of aspirin; Z79.01 Long term (current) use of anticoagulants; Z79.899 Other long term (current) drug therapy; Z20.822 Contact with and (suspected) exposure to COVID-19
CPT/HCPCS: 36415; 80048; 80076; 80307; 82009; 82947; 83735; 85025; 85610; 85730; 87635; 93005; 93926; 96365; 96372; 96375; 99285